=== PATIENT | female | born 1960 | race Caucasian/White ===

== ENCOUNTER 2021-02-26 11:34 | Outpatient (REF) | payer BC, SELFPAY ==
--- NOTE | 2021-02-26 10:30 | PAPFT_PTH ---
PATIENT: Lorie Love LOC: [facility] U#:[id number] AGE/SX: 60/F ROOM: RE02/26/[address]: TASHI Tierney : 1960 BED: DIS: 02/26/2021 SPEC #: [id number] RECD: 02/26/21 12:51 STATUS: LEDA REEnrique #: [id number] TOMMY: 02/26/21 10:[address]: Negra Harris DEPT: [facility] Cytology RECD BY: Su Harris ENTERED: 02/26/21 12:52 SP TYPE: PAPFT CATRINA DR: Unknown,Unknown Tissues: 1 - CX/ENDOCX FOR PAP SMEARS Procedures: PAP THIN PREP/[facility] Screening HPV DNA PROBE Comments: [id number]
== END 2021-02-26 11:35 | disposition home or self-care (01) ==
LOC: LBN 11:34
PROVIDERS: Visit Provider Nurse Practitioner Family
DX: M54.5 Low back pain (principal); R10.2 Pelvic and perineal pain; Z12.4 Encounter for screening for malignant neoplasm of cervix; R82.998 Other abnormal findings in urine; Z11.51 Encounter for screening for human papillomavirus (HPV)
CPT/HCPCS: 88142; 87086; 87624